=== PATIENT | male | born 1995 | race Caucasian/White ===

== ENCOUNTER 2017-03-11 15:03 | Emergency (ER) | payer SELFPAY ==
[~2017-03-11] VITALS: Ht 177.8 cm; Wt 84.1 kg
[2017-03-11 18:11] VITALS: BP 109/67
== END 2017-03-11 18:16 | disposition home or self-care (01) ==
LOC: EMS 15:08
DX: H00.025 Hordeolum internum left lower eyelid (principal)
CPT/HCPCS: 99283